=== PATIENT | female | born 1955 | race Caucasian/White ===

== ENCOUNTER 2019-12-13 05:45 | Day surgery (SDC) | payer OTHER ==
[~2019-12-13] VITALS: Ht 165.1 cm; Wt 70.3 kg
[2019-12-13] MEDS ORDERED: CEFAZOLIN SOD 1 GM in D5W 50 ML IV ONE (07:00)
[2019-12-13] MEDS ORDERED: ISOFLURANE 15 MIN GAS INH ONE (07:18)
[2019-12-13] MEDS ORDERED: NS IRRIG SOLN 1000 ML IR ONE (07:18)
[2019-12-13] MEDS ORDERED: SUGAMMADEX SODIUM 200 MG/2 ML VIAL IV ONE (07:18)
[2019-12-13] MEDS ORDERED: ONDANSETRON HCL 4 MG/2 ML VIAL IVP ONE (07:18)
[2019-12-13] MEDS ORDERED: fentaNYL CITRATE 250 MCG/5 ML AMP IV ONE (07:18)
[2019-12-13] MEDS ORDERED: PROPOFOL 200MG/ 20ML VIAL (DIPRIVAN) IV ONE (07:18)
[2019-12-13] MEDS ORDERED: BUPIVACAINE /EPINEPHRINE/PF 0.25% 30 ML VIAL INJ ONE (07:18)
[2019-12-13] MEDS ORDERED: GLYCOPYRROLATE 0.2 MG/ML VIAL IJ ONE (07:18)
[2019-12-13] MEDS ORDERED: MIDAZOLAM HCL 5 MG/5 ML VIAL IVP ONE (07:18)
[2019-12-13] MEDS ORDERED: LR 1,000 ML IV.SOLN IV ONE (07:18)
[2019-12-13] MEDS ORDERED: ROCURONIUM BROMIDE 10 MG/ML (ZEMURON) IV ONE (07:18)
[2019-12-13] MEDS ORDERED: DEXAMETHASONE SOD PHOSPHATE 4 MG/ML VIAL IVP ONE (07:18)
[2019-12-13] MEDS ORDERED: IOHEXOL 50 ML IV ONE (08:06)
[2019-12-13] MEDS ORDERED: ONDANSETRON HCL 4 MG/2 ML VIAL IVP PRN (08:15)
[2019-12-13] MEDS ORDERED: HYDROmorphone 1 MG INJ. 1 MG/ML AMPUL IVP PRN ×2 (08:15→08:30)
[2019-12-13] MEDS ORDERED: hydrALAZINE HCL 20 MG/ML VIAL IVP PRN (08:15)
[2019-12-13] MEDS ORDERED: MEPERIDINE HCL/PF 25 MG/ML DISP.SYRIN IVP PRN (08:15)
[2019-12-13] MEDS ORDERED: MORPHINE 2 MG/ML INJ. SYRINGE IVP PRN ×2 (08:15)
[2019-12-13] MEDS ORDERED: MIDAZOLAM HCL 2 MG/2 ML VIAL (VERSED) IVP PRN (08:15)
[2019-12-13] MEDS ORDERED: D5/0.45 NS 1,000 ML IV SCH (08:28)
[2019-12-13] MEDS ORDERED: HYDROcodone/ACETAMIN 5-325 MG TAB (NORCO/ VICODIN) PO PRN ×2 (08:30)
[2019-12-13] MEDS ORDERED: ATROPINE SULFATE 0.4 MG/ML VIAL IVP ONE (09:30)
[2019-12-13] MEDS ORDERED: ATROPINE SULFATE 1 MG/10 ML SYRINGE IVP ONE ×2 (09:30→10:00)
[2019-12-13] MEDS ORDERED: ATROPINE SULFATE 0.4 MG/ML VIAL ONE (09:44)
[2019-12-13] MEDS ORDERED: ONDANSETRON HCL 4 MG/2 ML VIAL ONE (10:09)
[2019-12-13] MEDS ORDERED: HYDROcodone/ACETAMIN 5-325 MG TAB (NORCO/ VICODIN) ONE (10:14)
[2019-12-13 10:53] VITALS: BP_SYST 143
== END 2019-12-13 11:25 | disposition home or self-care (01) ==
LOC: SMU 05:45 → SDS 05:45
PROVIDERS: ATTEND Colon & Rectal Surgery
DX: K80.10 Calculus of gallbladder with chronic cholecystitis without obstruction (principal); K66.0 Peritoneal adhesions (postprocedural) (postinfection)
CPT/HCPCS: 47563; 71046; 74300 ×2; 88304; C1727; C1758; C9399; J0461; J0690; J1100; J2250; J2405; J2704; J3010; J3490 ×2; J7060; J7120; Q9967